=== PATIENT | female | born 1965 | race Caucasian/White ===

== ENCOUNTER 2016-12-05 11:29 | Day surgery (SDC) | payer OTHER, MEDICAID ==
--- NOTE | 2016-12-04 17:19 | GHP ---
[f rep st] PREOP HISTORY AND PHYSICAL DATE OF ADMISSION: 12/05/2016 HISTORY OF PRESENT ILLNESS: The patient is a 51-year-old female with stage 5 chronic kidney disease due to diabetes and hypertension, who is here in consult for arteriovenous fistula creation. She i s not currently on hemodialysis. She has been on a kidney transplant list for 7 months, and her nep hrologist thinks she will certainly be on dialysis for some time while she awaits a kidney. The pat manju is left-handed and has been preserving her right arm for fistula. Ultrasound vein mapping in t he office with Dr. Shaw shows adequate veins for fistula creation. PAST MEDICAL HISTORY: Chronic kidney disease stage 5, hypertension, diabetes, systemic lupus erythe matosus, secondary renal hyperparathyroidism, orthostatic hypotension, anemia, history of renal lith iasis, arthritis, psoriasis. PAST SURGICAL HISTORY: Neck surgery, cholecystectomy, lumbar disk surgery, partial hysterectomy, le ft shoulder repair, carpal tunnel release, panniculectomy, excision of mons pubis, and spinal stimul ator. FAMILY HISTORY: Includes hypertension, arthritis, diabetes, myocardial infarction, and cancer. SOCIAL HISTORY: Patient quit smoking in 1999. She drinks alcohol monthly or less. She is and lives with her brother and [id number]. ALLERGIES: Penicillin has caused bladder infection. MEDICATIONS: Baby aspirin, amitriptyline, amlodipine, atorvastatin, calcitriol, doxazosin, furosemi de, gabapentin, hydroxychloroquine, Levemir, metoprolol, OxyContin, Victoza. REVIEW OF SYSTEMS: Includes chills, fatigue, weight gain, swelling of the ankles, shortness of arsh th, chronic back pain, itching, depression, trouble sleeping, and memory loss. PHYSICAL EXAMINATION: GENERAL: Reveals a 51-year-old female, somewhat chronically ill-appearing, i n no acute distress. HEENT: Normocephalic, atraumatic. Sclerae white. CHEST: Clear to auscultat ion bilaterally. CARDIAC: Regular rate and rhythm. ABDOMEN: Soft, nontender. EXTREMITIES: Warm , dry. Palpable radial pulses. PSYCH: Normal mood and affect. SKIN: Warm and dry. IMPRESSION: This is a 51-year-old female with stage 5 kidney disease and multiple comorbidities who needs access to begin dialysis. PLAN: Plan is to proceed with a right upper extremity arteriovenous fistula creation. Risks and op tions have been discussed, and she requests to proceed. /[id number]/MODL
[2016-12-05] MEDS ORDERED: ceFAZolin 2 GM/DEXTROSE 100 ML IV ONE (11:52)
--- NOTE | 2016-12-05 12:12 | PDHPUP ---
History & Physical Update H&P update statement: This history and physical update is based on an assessment of the patient which was completed after admission or registration (within 24 hours), but prior to the surgery/procedure. H&P update: H&P reviewed & patient examined, no change in patient's condition since H&P completed
[2016-12-05 12:15] VITALS: PULSE 60
[2016-12-05 12:22] LABS: % IMMATURE GRANULYOCYTES 0.3 % (0.0-1.1); ABSOLUTE IMMATURE GRANULOCYTES 0.01 10^3/uL (0.00-0.10); ADD DIFF? NO; ADD MORPH? NO; ADD SCAN? NO; ATYPICAL LYMPHOCYTE FLAG 10 (0-99); FRAGMENT RBC FLAG 0 (0-99); HEMATOCRIT 33.8 % (38.0-47.0); HEMOGLOBIN 11.3 g/dL (12.6-16.3); LEFT SHIFT FLG 0 (0-99); LIPEMIA HEMOLYSIS FLAG 80 (0-99); MEAN CELL HEMOGLOBIN 28.4 pg (27.9-34.1); MEAN CELL HEMOGLOBIN CONCENTR. 33.4 g/dL (32.4-36.7); MEAN CELL VOLUME 84.9 fL (81.5-99.8); MEAN PLATELET VOLUME 10.1 fL (8.7-11.7); PLATELET CLUMPS FLAG 0 (0-99); PLATELET COUNT 173 10^3/uL (150-400); RED BLOOD CELL COUNT 3.98 10^6/uL (4.18-5.33); RED CELL DISTRIBUTION WIDTH 12.6 % (11.5-15.2)
[2016-12-05] MEDS ORDERED: PROTAMINE SULFATE 50 MG/5 ML VIAL IVP ONE (12:27)
[2016-12-05] MEDS ORDERED: THROMBIN (BOVINE) 5,000 UNIT VIAL TP ONE (12:27)
[2016-12-05] MEDS ORDERED: PAPAVERINE HCL 60 MG/2 ML SDV ONE (12:28)
[2016-12-05] MEDS ORDERED: MIDAZOLAM 2 MG/2 ML VIAL ONE (12:34)
[2016-12-05] MEDS ORDERED: PROPOFOL/EMULSION 500 MG/50 ML BOTTLE IV ONE (12:34)
[2016-12-05] MEDS ORDERED: fentaNYL 100 MCG/2 ML INJ ONE (12:34)
[2016-12-05 12:54] LABS: ANION GAP 17 mEq/L (8-16); CALCIUM 9.8 mg/dL (8.5-10.4); CARBON DIOXIDE 17 mEq/l (22-31); CHLORIDE 109 mEq/L (97-110); CREATININE 3.7 mg/dL (0.6-1.0); GLOMERULAR FILTRATION RATE 13; GLUCOSE 90 mg/dL (70-100); POTASSIUM 4.4 mEq/L (3.5-5.2); SODIUM 143 mEq/L (134-144)
--- NOTE | 2016-12-05 13:10 | PDANEPAE ---
ANE Past Medical History - Cardiovascular History Hx Hypertension: Yes Hx Arrhythmias: No Hx Chest Pain: No Hx Coronary Artery / Peripheral Vascular Disease: No Hx CHF / Valvular Disease: No Hx Palpitations: No Cardiovascular History Comment: HYPERLIPIDEMIA. PCP MONITORS BP MEDS - Pulmonary History Hx COPD: No Hx Asthma/Reactive Airway Disease: No Hx Recent Upper Respiratory Infection: No Hx Oxygen in Use at Home: No Hx Sleep Apnea: No Sleep Apnea Screening Result - Last Documented: Negative - Neurologic History Hx Cerebrovascular Accident: No Hx Seizures: No Hx Dementia: No - Endocrine History Hx Diabetes: Yes Endocrine History Comment: TYPE 2- CONTROLLED FOR 1.5 YRS - Renal History Hx Renal Disorders: Yes Renal History Comment: ESRD. HX OF BLADDER INFECTION - Liver History Hx Hepatic Disorders: No - Neurological & Psychiatric Hx Hx Neurological and Psychiatric Disorders: Yes Neurological / Psychiatric History Comment: SLIGHT ANXIETY - Cancer History Hx Cancer: No - Congenital Disorder History Hx Congenital Disorders: No - GI History Hx Gastrointestinal Disorders: No - Other Health History Other Health History: WEARS GLASSES FOR READING. PSORIARSIS ON LEFT SIDE OF HAIRLINE ABOVE EAR- USES CREAM PRN - Chronic Pain History Chronic Pain: Yes (LOWER BACK AND HIPS) - Surgical History Prior Surgeries: SPINE STIMULATOR 05/24/2016. CERVICAL FUSION. LEFT RTC REPAIR. QUINTON. PANECTOMY. PARTIAL HYSTERECTOMY. 3 BACK SURGERIES. CARPAL TUNNEL SURGERY X3 ANE Review of Systems - Exercise capacity METS (RN): 4 METS ANE Patient History - Allergies Allergies/Adverse Reactions: Penicillins Allergy (Verified 12/04/16 16:21) Other-Enter Comments - Home Medications Home Medications: AMITRIPTYLINE HCL HS 12/04/16 [Last Taken Unknown] Amlodipine Besylate HS 12/04/16 [Last Taken Unknown] Aspirin 81mg (*) 12/04/16 [Last Taken Unknown] Atorvastatin Calcium 12/04/16 [Last Taken 12/05/16 08:30] CALCITRIOL 12/04/16 [Last Taken Unknown] Docusate Sodium 12/04/16 [Last Taken Unknown] Doxazosin Mesylate HS 12/04/16 [Last Taken Unknown] Furosemide 12/04/16 [Last Taken Unknown] GABAPENTIN HS 12/04/16 [Last Taken Unknown] Herbals/Supplements -Info Only 12/04/16 [Last Taken Unknown] Hydroxychloroquine Sulfate BID 12/04/16 [Last Taken Unknown] Levemir 14 units HS 12/04/16 [Last Taken Unknown] Metoprolol Tartrate BID 12/04/16 [Last Taken Unknown] Oxycontin BID 12/04/16 [Last Taken Unknown] - NPO status NPO Since - Liquids (Date): 12/05/16 NPO Since - Liquids (Time): 10:00 NPO Since - Solids (Date): 12/04/16 NPO Since - Solids (Time): 20:30 - Smoking Hx Smoking Status: Former smoker - Family Anes Hx Family Hx Anesthesia Complications: NONE ANE Labs/Vital Signs - Labs Result Diagrams: 12/05/16 12:15 12/05/16 11:52 - Vital Signs Blood Pressure: 104/67 Heart Rate: 60 Respiratory Rate: 16 O2 Sat (%): 98 Height: 165.1 cm Weight: 93.894 kg ANE Physical Exam - Airway Mallampati Score: Class 1 Mouth exam: normal dental/mouth exam - Pulmonary Pulmonary: no respiratory distress, no rales or rhonchi, clear to auscultation, reduced air movement - Cardiovascular Cardiovascular: regular rate and rhythym, no murmur, rub, or gallop - ASA Status ASA Status: III ANE Anesthesia Plan Anesthesia Plan: GA w LMA
[2016-12-05] MEDS ORDERED: ALBUMIN 5% 250 ML BOTTLE IV ONE (13:16)
[2016-12-05] MEDS ORDERED: fentaNYL 100 MCG/2 ML INJ IVP PRN (13:25)
[2016-12-05] MEDS ORDERED: PROMETHAZINE HCL 25 MG/ML INJ IVP PRN (13:25)
[2016-12-05] MEDS ORDERED: NALOXONE HCL 0.4 MG/ML INJ IVP PRN (13:25)
[2016-12-05] MEDS ORDERED: ONDANSETRON 4 MG/2 ML VIAL IVP PRN (13:25)
[2016-12-05] MEDS ORDERED: ONDANSETRON 4 MG/2 ML VIAL ONE (13:26)
[2016-12-05] MEDS ORDERED: RANITIDINE 50 MG/2 ML VIAL ONE (13:26)
[2016-12-05] MEDS ORDERED: SUGAMMADEX SODIUM 200 MG/2 ML VIAL IVP ONE (13:26)
[2016-12-05] MEDS ORDERED: LIDOCAINE 2% 5 ML SDV ONE (13:26)
[2016-12-05] MEDS ORDERED: EPINEPHrine 1 MG/10 ML SYR IVP ONE (13:26)
[2016-12-05] MEDS ORDERED: ROCURONIUM 50 MG/5 ML VIAL ONE (13:26)
[2016-12-05] MEDS ORDERED: morphINE PF 5 MG/10 ML INJ ONE (13:32)
[2016-12-05] MEDS ORDERED: HEPARIN 10,000 UNIT/10 ML MDV ONE (13:33)
[2016-12-05] MEDS: BUPIVACAINE 0.5% 30 ML SDV ONE ×2 (13:46→14:17)
[2016-12-05] MEDS ORDERED: oxyCODONE IR 5 MG TAB PO PRN (14:07)
--- NOTE | 2016-12-05 14:09 | POSTOPPROG ---
Post Op Note Date of Operation: 12/05/16 Surgeon: Mehdi Shaw Technical Rep: Samantha Stone Anesthesiologist: Mari Martin Anesthesia: GET(General Endotracheal) Pre-op Diagnosis: CRF Post-op Diagnosis: same Procedure: RUE brachiocephalic AVF Findings: strong thrill Inf/Abcess present in the surg proc area at time of surgery?: No EBL: Minimal Complications: none
[2016-12-05] MEDS: THROMBIN (BOVINE) 20,000 UNIT VIAL TP ONE ×2 (14:10→14:20)
[2016-12-05 14:32] VITALS: TEMP 97.7
[2016-12-05 14:34] VITALS: RESP 16
--- NOTE | 2016-12-05 15:00 | POSTANESTH ---
Post Anesthetic Evaluation Cardiovascular Status: Normal, Stable Respiratory Status: Normal, Stable Level of Consciousness/Mental Status: Can Participate in Eval Pain Control: Adequate, Prn Tx Ordered Nausea/Vomiting Control: Adequate, Prn Tx Ordered Complications Possibly Related to Anesthesia: None Noted
[2016-12-05 16:04] VITALS: BP 121/67; O2SAT 99
--- NOTE | 2016-12-06 06:40 | GOP ---
[f rep st] OPERATIVE REPORT DATE OF OPERATION: 12/05/2016 SURGEON: Mehdi Shaw MD ANESTHESIA: General endotracheal anesthesia. PREOPERATIVE DIAGNOSIS: Chronic renal failure. POSTOPERATIVE DIAGNOSIS: Chronic renal failure. PROCEDURE PERFORMED: 1. Right arm ultrasound vein mapping. 2. Right arm brachiocephalic arteriovenous fistula. FINDINGS: Patient was found have an excellent cephalic vein in the upper arm. She had a very small cephalic vein at the wrist, measuring only 2 mm, as well as a calcified radial artery. DESCRIPTION OF PROCEDURE: Patient was taken to the operating room, where she received satisfactory general endotracheal anesthesia by Dr. Martin. She was placed in supine position with the right arm outstretched on an arm board, prepped and draped in usual sterile fashion. Ultrasound was used to m ap the veins as noted above. Incision was made in the right antecubital space and dissection was ex tended down through the subcutaneous tissue. The cephalic vein was isolated and dissected free abov e and below the antecubital space. It appeared to be quite large and patent. The biceps aponeurosi s was divided, exposing the brachial artery, which was then dissected free and controlled with vesse l loops, and after adequate dissection the patient was systemically heparinized. After adequate cir culation time, the vessels were occluded. The cephalic vein was ligated distally with 2-0 silk ties and then divided. The end was fashioned in the anastomotic flare, and an end-to-side anastomosis w as made to the brachial artery with a running 6-0 Prolene suture. All vessels were flushed prior to completion of the anastomosis. Inflow was first initiated through the AV fistula and then down the hand to the wrist. She maintained an adequate radial pulse, although it was decreased from preop, and had an excellent flow in the fistula. Hemostasis was assured with electrocautery. The heparin was reversed with protamine. Some topical thrombin was placed in the cavity and the wound was close d with 3-0 Vicryl for the subcu, 4-0 Monocryl subcuticular stitch for the skin. The wound was dress ed and taken to the recovery room in satisfactory condition. There were no complications. /[id number]/MODL
== END 2016-12-05 15:58 | disposition home or self-care (01) ==
LOC: FSGY 11:29
PROVIDERS: ATTEND Surgery
PROC: 03170ZD Bypass Right Brachial Artery to Upper Arm Vein, Open Approach (ICD-10-PCS; principal; 2016-12-05 13:45)
DX: I12.0 Hypertensive chronic kidney disease with stage 5 chronic kidney disease or end stage renal disease (principal); E11.22 Type 2 diabetes mellitus with diabetic chronic kidney disease; N18.5 Chronic kidney disease, stage 5; N25.81 Secondary hyperparathyroidism of renal origin; I95.1 Orthostatic hypotension; L93.0 Discoid lupus erythematosus; E78.5 Hyperlipidemia, unspecified; Z87.891 Personal history of nicotine dependence; Z88.2 Allergy status to sulfonamides
CPT/HCPCS: J0690; J1644; J2250; J2274; J2405; J2440; J2704; J2720; J2780; J3010; P9041